=== PATIENT | male | born 1990 | race African-American/Black ===

== ENCOUNTER 2018-10-31 05:35 | Emergency (ER) | payer OTHER ==
[2018-10-31] MEDS ORDERED: KETOROLAC TROMETHAMINE 60 MG/2 ML SDV IM ONE (06:40)
[2018-10-31 06:58] VITALS: BP 152/86
--- NOTE | 2018-10-31 06:58 | ER Document Report ---
ED General - General Chief Complaint: Back Pain Stated Complaint: BACK/SPINE PAIN/SPASM Time Seen by Provider: 10/31/18 06:16 Primary Care Provider: EDIN[place] [Primary Care Provider] - Follow up as needed TRAVEL OUTSIDE OF THE [place] IN LAST 30 DAYS: No - HPI Patient complains to provider of: Back spasms Notes: Patient states back spasm ongoing for approximately week and a half. 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 Patient denies any trauma denies any new physical activity. Patient states he is hydrating with clear urine. Denies any fevers chills nausea vomiting Past Medical History - Social History Smoking Status: Unknown if Ever Smoked Family History: Reviewed & Not Pertinent Patient has suicidal ideation: No Patient has homicidal ideation: No Renal/ Medical History: Denies: Hx Peritoneal Dialysis Review of Systems - Review of Systems Constitutional: No symptoms reported EENT: No symptoms reported Cardiovascular: No symptoms reported Respiratory: No symptoms reported Gastrointestinal: No symptoms reported Genitourinary: No symptoms reported Male Genitourinary: No symptoms reported Musculoskeletal: Back pain Skin: No symptoms reported Hematologic/Lymphatic: No symptoms reported Neurological/Psychological: No symptoms reported -: Yes All other systems reviewed and negative Physical Exam - Vital signs Vitals: Temp Pulse Resp BP Pulse Ox 98.2 F 58 L 12 158/90 H 99 10/31/18 05:42 10/31/18 05:42 10/31/18 05:42 10/31/18 05:42 10/31/18 05:42 Interpretation: Normal - General General appearance: Appears well, Alert - HEENT Head: Normocephalic, Atraumatic Eyes: Normal Pupils: PERRL - Respiratory Respiratory status: No respiratory distress Chest status: Nontender Breath sounds: Normal Chest palpation: Normal - Cardiovascular Rhythm: Regular Heart sounds: Normal auscultation Murmur: No - Abdominal Inspection: Normal Distension: No distension Bowel sounds: Normal Tenderness: Nontender Organomegaly: No organomegaly - Back Back: Normal, Nontender - Extremities General upper extremity: Normal inspection, Nontender, Normal color, Normal ROM, Normal temperature General lower extremity: Normal inspection, Nontender, Normal color, Normal ROM, Normal temperature, Normal weight bearing. No: Booker's sign - Neurological Neuro grossly intact: Yes Cognition: Normal Orientation: AAOx4 [place]isha Coma Scale Eye Opening: Spontaneous [place] Coma Scale Verbal: Oriented [place] Coma Scale Motor: Obeys Commands [place] Coma Scale Total: 15 Speech: Normal Motor strength normal: LUE, RUE, LLE, RLE Sensory: Normal - Psychological Associated symptoms: Normal affect, Normal mood - Skin Skin Temperature: Warm Skin Moisture: Dry Skin Color: Normal Course - Re-evaluation Re-evalutation: 10/31/18 14:42 The patient presents with low back pain without signs of spinal cord compression, cauda equina syndrome, infection, aneurysm, or other serious etiology. The patient is neurologically intact. Given the extremely low risk of these diagnoses further testing and evaluation for these possibilities does not appear to be indicated at this time. The patient has been instructed to return if the symptoms worsen or change in any way. - Vital Signs Vital signs: Temp Pulse Resp BP Pulse Ox 98.7 F 62 18 152/86 H 97 10/31/18 06:58 10/31/18 06:58 10/31/18 06:58 10/31/18 06:58 10/31/18 06:58 Discharge - Discharge Clinical Impression: Back sprain, Back spasm Condition: Good Disposition: HOME, SELF-CARE Instructions: Ice Packs ([facility]), Low Back Pain ([facility]), Muscle Strain ([facility]), Oral Narcotic Medication ([facility]), Warm Packs ([facility]) Additional Instructions: Please make sure drinking plenty of fluids please use the Ultram for severe pain Tylenol and Motrin together for regular pain I would recommend ice packs warm packs as well to help out with your symptoms return to the ER if symptoms worsen Prescriptions: Ibuprofen [Motrin 600 mg Tablet] 600 mg PO Q8HP PRN #21 tablet PRN Reason: Tramadol HCl [Ultram 50 mg Tablet] 50 mg PO ASDIR PRN #20 tablet PRN Reason: Forms: Return to Work [facility]errals: [facility] [Primary Care Provider] - Follow up as needed
== END 2018-10-31 07:03 | disposition home or self-care (01) ==
LOC: ER 05:35
DX: S23.3XXA Sprain of ligaments of thoracic spine, initial encounter (principal); X58.XXXA Exposure to other specified factors, initial encounter; M54.5 Low back pain; R25.2 Cramp and spasm
CPT/HCPCS: 99283; 96372; J1885